=== PATIENT | male | born 1995 | race Caucasian/White ===

== ENCOUNTER 2022-07-03 09:42 | Emergency (ER) | payer OTHER, SELFPAY ==
[2022-07-03] VITALS (13 sets, daily range): BP systolic 127–145; BP diastolic 76–105; PULSE 86–94; RESP 16–18; TEMP 36.4–36.5; O2SAT 97–100
--- NOTE | ~2022-07-03 | CT_ITS ---
CT Abdomen and Pelvis with contrast. History: Abdominal pain. Spiral CT of the abdomen and pelvis was performed after the administration of intravenous contrast. 1 00 cc of Omnipaque 350 was administered intravenously without complication. Dose reduction technique was used on this scan by utilizing automated exposure control and iterative reconstruction technique. The dose-length product (DLP) was 810.56 mGy-cm. Findings: Scans through the lung bases demonstrate mild atelectatic change. The liver, spleen, pancreas, gallbladder, adrenals and kidneys are within normal limits. No evidence of aortic aneurysm. There is no evidence of bowel obstruction. There is no evidence to suggest acute appendicitis or dive rticulitis. Numerous shotty right lower quadrant lymph nodes are present. Images through the pelvis were performed. Urinary bladder unremarkable. Prostate gland and seminal ve sicles are unremarkable. No ascites is seen. Impression: Numerous shotty right lower quadrant lymph nodes suggest mesenteric adenitis. No other significant findings. Reviewed, dictated and finalized at [facility]. [facility] Impression: Numerous shotty right lower quadrant lymph nodes suggest mesenteric adenitis. No other significant findings.
[2022-07-03 10:51] LABS: Alanine Aminotransferase 31 U/L (6-50); Albumin Level 4.9 g/dL (3.5-5.1); Alkaline Phosphatase 68 U/L (38-126); Anion Gap 10 mmol/L (8-16); Aspartate Amino Transferase 26 U/L (17-59); Bilirubin,Total 0.5 mg/dL (0.2-1.3); Blood Urea Nitrogen 10 mg/dL (9-20); Carbon Dioxide 25 mmol/L (22-30); Chloride 105 mmol/L (98-107); Estimated CRCL calculation 150 ml/min; Estimated Glomerular Filt Rate > 60; Glucose 97 mg/dL (65-110); Lipase 235 U/L (23-300); Sodium 140 mmol/L (137-145)
[2022-07-03 11:04] LABS: Appearance Urine Clear (Clear); Bilirubin Urine Negative (Negative); Blood Urine Negative (Negative); Color Urine Yellow (Yellow); Glucose Urine UA Negative (Negative); Ketones Urine Negative (Negative); Leukocyte Esterase Ur Negative LEU/UL (Negative); Nitrate Urine Negative (Negative); Protein Urine Negative (Negative); Urobilinogen Urine 0.2 mg/dL (<2.0)
[2022-07-03 11:05] LABS: Add Urine Microscopic? NO
[2022-07-03 11:26] LABS: Basophils Percent Auto 0.5 % (0.2-1.2); Eosinophils Absolute Auto 0.3 K/mm3 (0-0.3); Eosinophils Percent Auto 3.3 % (0-4.4); Hematocrit 47.7 % (42.0-52.0); Hemoglobin 16.6 g/dL (14.0-18.0); Immature Granulocyte Absolute 0.12 K/mm3 (0.00-0.031); Immature Granulocyte Percent A 1.6 % (0-0.5); Lymphocytes Absolute Auto 1.53 K/mm3 (0.9-3.2); Lymphocytes Percent Auto 20.2 % (18.3-44.2); Mean Corpuscular HGB Conc 34.8 g/dl (32-36); Mean Corpuscular Hemoglobin 30.6 pg (26-34); Mean Platelet Volume 9.7 fl (7.4-10.4); Monocytes Absolute Auto 1.1 K/mm3 (0.1-0.6); Monocytes Percent Auto 13.9 % (2.6-8.5); Neutrophils Absolute Auto 4.6 K/mm3 (1.3-6.7); Neutrophils Percent Auto 60.5 % (45.5-73.1); Platelet Count Result 278 k/mm3 (150-375); Red Blood Count 5.42 M/mm3 (4.6-6.20); Red Cell Distribution Width 12.2 % (11.5-14.5); White Blood Count 7.6 K/mm3 (4.5-10.0)
--- NOTE | 2022-07-03 11:52 | ED.ABDPAIN ---
HPI - Abdominal Pain General Chief Complaint: Abdominal Pain Stated Complaint: abd pain Time Seen by Provider: 07/03/22 11:35 Source: patient Mode of arrival: ambulatory Limitations: no limitations History of Present Illness HPI narrative: Patient is a 27-year-old previously healthy male presenting to the emergency department for evaluation of abdominal pain. Patient reports a 1 week history of intermittent abdominal pain that sometimes awakens him from sleep. Described as aching, cramping, pressure-like in nature which originates in the lower abdomen and is radiated into the upper abdomen. He denies associated fever, chills, nausea, vomiting. No flank pain. No dysuria or hematuria. Patient denies constipation or diarrhea. No dark or tarry stools. He denies night sweats or weight loss. No history of irritable bowel disease in self or family members. No history of autoimmune diseases. Patient denies any rash. Patient states due to increased pain that awakened him this morning, he decided to come to the emergency department. He has not trialed any medication [id number]. Related Data Allergies Allergy/AdvReac Type Severity Reaction Status Date / Time No Known Allergies Allergy Verified 07/03/22 11:01 Review of Systems Review of Systems: CONSTITUTIONAL: Denies fever, chills, or sweats. EYES: Denies visual changes, redness, or discharge. ENT: Denies rhinorrhea, congestion, sore throat, or otalgia. CARDIOVASCULAR: Denies chest pain, palpitations, or edema. RESPIRATORY: Denies cough or dyspnea. GASTROINTESTINAL: Reports abdominal pain without nausea, vomiting or diarrhea GENITOURINARY: Denies dysuria or hematuria. SKIN: Denies rash or itching. MUSCULOSKELETAL: Denies back pain, joint pain, or myalgia. NEUROLOGIC: Denies headache, numbness, or weakness. [facility] Surgical History Surgical History (Updated 07/03/22 @ 11:55 by Joseline Cutler MD) No pertinent past surgical history Social History Social History (Updated 07/03/22 @ 11:56 by Joseline Cutler MD) Smoking status: Never smoker Alcohol intake: current Alcohol use details: Occasional Substance use: never Gender identity (if verbalized by the patient): Male Exam Narrative: GENERAL: Awake, alert, conversant HEAD: Normocephalic, atraumatic. EYES: PERRLA and EOMI. ENT: Nares clear, no rhinorrhea or epistaxis. Mucous membranes moist. NECK: Supple. CHEST: No respiratory distress, breathing even and non labored HEART: Regular rate, sinus rhythm ABDOMEN:Non distended, mild epigastric tenderness, mild periumbilical tenderness, no rebound rigidity or guarding EXTREMITIES: Normal range of motion. No edema. SKIN: Warm, dry, no rash. NEURO:No focal deficits. Alert and oriented x3 Course Vital Signs Vital signs: Vital Signs Temperature 36.4 C 07/03/22 10:02 Pulse Rate 94 07/03/22 10:02 Respiratory Rate 18 07/03/22 10:02 Blood Pressure 142/105 H 07/03/22 10:02 Pulse Oximetry 99 07/03/22 10:02 Oxygen Delivery Room Air 07/03/22 10:02 Temperature 36.5 C 07/03/22 10:56 Pulse Rate 87 07/03/22 10:56 Respiratory Rate 16 07/03/22 10:56 Blood Pressure 128/81 07/03/22 11:01 Pulse Oximetry 99 07/03/22 11:15 Oxygen Delivery Room Air 07/03/22 10:56 MDM - Abdominal Pain MDM Narrative Medical decision making narrative: Medical decision making narrative: -Presentation: Patient is a 27-year-old male presenting for evaluation of a 1 month history of intermittent abdominal pain. At the time of assessment, patient with mild frontal abdominal tenderness without rebound, rigidity or guarding. -DDX includes but is not limited to: Appendicitis, pyelonephritis, gastroenteritis, gastritis, irritable bowel disease, diverticulitis -Co-morbidities complicating care: None -Social determinants of health: None -External Chart Review: External EMR record reviewed, no previous records found -Hx from independent Sources
[2022-07-03] MEDS: SODIUM CHLORIDE 0.9% IV 500 ML 999 ML IV CONT (12:48)
== END 2022-07-03 13:20 | disposition home or self-care (01) ==
PROVIDERS: Emergency Provider Emergency Medicine
DX: I88.0 Nonspecific mesenteric lymphadenitis (principal)
CPT/HCPCS: 36415; 74177; 80053; 81003; 83690; 85025; 96360; 99284; J7040; Q9967